=== PATIENT | male | born 1970 | race Caucasian/White ===

== ENCOUNTER 2018-03-03 13:32 | Inpatient (IN) | payer OTHER ==
[2018-03-03] MEDS ORDERED: NS 1,000 ML IV ONE (13:57)
--- NOTE | 2018-03-03 13:57 | EDPHY ---
H & P Time Seen by Provider: 03/03/18 13:46 HPI/ROS: Chief complaint. Clumsiness with right arm and right leg HPI. Patient is in 47-year-old male developed clumsiness to right arm and right leg yesterday morning wish they say was about 30 hr ago at approximately 8 :00 a.m. On Sunday morning. He has dizziness and vomiting. They thought he had a middle ear infection and use some cczc-gas-rmaieuk medications. He is vomiting is better. His dizziness is somewhat better however clumsiness and weakness to right arm and like with right leg has persisted. He fell yesterday secondary to weakness and clumsiness. He had a headache yesterday but not today. His vision is normal. No chest discomfort or shortness of breath or abdominal pain. No similar symptoms previously ROS Constitutional. no fever/chills, no weakness Eyes. no problems with vision ENT. no sore throat, no nasal drainage Cardiovascular. no chest pain Respiratory. no shortness of breath, no cough Abdominal. no abdominal pain, no nausea/vomiting, no diarrhea . no problems urinating MS. no calf pain/swelling, no neck/back pain, no joint pain Skin. no rash Lymph. no swollen glands Neuro. Headache yesterday. Clumsiness and weakness to right arm and right leg Past Medical/Surgical History: Occasional tachycardia Social History: , nonsmoker, no alcohol Smoking Status: Never smoked Physical Exam: General Appearance: Alert well-developed male mild distress vital signs significant for blood pressure 172/112 Eyes: Pupils equal and round no pallor or injection. ENT, Mouth: Mucous membranes are moist. Respiratory: There are no retractions, lungs are clear to auscultation. Cardiovascular: Regular rate and rhythm. Gastrointestinal: Abdomen is soft and nontender, no masses, bowel sounds normal. Neurological: Awake and alert. Speech is normal. Cranial nerves are normal. There is no pronator drift. Finger to nose is abnormal with the right arm. Jywf-ig-[id number] is somewhat abnormal with the right leg. Left side is normal Skin: Warm and dry, no rashes. Musculoskeletal: Neck is supple nontender. Extremities symmetrical, full range of motion. Psychiatric: Patient is oriented X 3, there is no agitation. Constitutional: Initial Vital Signs Temperature (C) 36.7 C 03/03/18 13:38 Heart Rate 64 03/03/18 13:38 Respiratory Rate 18 03/03/18 13:38 Blood Pressure 172/112 H 03/03/18 13:38 O2 Sat (%) 97 03/03/18 13:38 O2 Delivery Mode Room Air Allergies/Adverse Reactions: No Known Allergies Allergy (Unverified 03/03/18 13:38) Medical Decision Making - Diagnostics EKG Interpretation: EKG interpreted by me shows normal sinus rhythm normal interval. There is left axis deviation. QRS shows electrical evidence for LVH. No significant ST elevation or depression. No arrhythmia. The rate is 57 Imaging Results: Imaging Impressions Chest X-Ray 03/03/18 13:57 Impression: 1. No acute pulmonary disease. 2. Consider chest two views when the patient's medical condition permits. Noncontrast head CT shows a subacute infarct in the right cerebellum in the posterior pica territory. There is also dense right vertebral artery Procedures: IV normal saline, monitor ED Course/Re-evaluation: I consulted discussed the case with at [facility]. He recommends admission for stroke workup but no intervention at this time 2:30 p.m. I re-evaluated the patient. Stable and unchanged. He and I and his discussed imaging and lab results. We discussed treatment plan including recommendation for admission. They expressed understanding I consulted discussed case with Dr. Jovel, neurology who recommends CTA head and neck and giving the patient aspirin I consulted and discussed case with Dr. Lujan, hospitalist who agrees to the admission Differential Diagnosis: Patient head posterior fossa symptoms yesterday and thought was inner ear infection. However he continued to be ataxic. He has evidence of right cerebellar stroke. He did have trauma while playing hockey on Sunday the day before and it is possible the patient may have had a vertebral artery dissection as a cause. - Data Points Laboratory Results: Laboratory Results 03/03/18 13:50 03/03/18 13:50 03/03/18 03/03/18 03/03/18 14:16 13:50 13:50 WBC RBC Hgb Hct MCV MCH MCHC RDW Plt Count MPV Neut % (Auto) Lymph % (Auto) [place] % (Auto) Eos % (Auto) Baso % (Auto) Nucleat RBC Rel Count Absolute Neuts (auto) Absolute Lymphs (auto) Absolute Monos (auto) Absolute Eos (auto) Absolute Basos (auto) Absolute Nucleated RBC Immature Gran % Immature Gran # PT 13.2 SEC SEC (12.0-15.0) INR 0.98 (0.83-1.16) Sodium 137 mEq/L mEq/L (135-145) Potassium 3.8 mEq/L mEq/L (3.3-5.0) Chloride 101 mEq/L mEq/L (97-110) Carbon Dioxide 28 mEq/l mEq/l (22-31) Anion Gap 8 mEq/L mEq/L (8-16) BUN 16 mg/dL mg/dL (7-23) Creatinine 0.8 mg/dL mg/dL (0.7-1.3) Estimated GFR > 60 Glucose 120 mg/dL H mg/dL (70-100) Calcium 9.7 mg/dL mg/dL (8.5-10.4) POC Troponin I 0.00 ng/mL ng/mL (0.00-0.08) 03/03/18 13:50 WBC 8.01 10^3/uL 10^3/uL (3.80-9.50) RBC 4.73 10^6/uL 10^6/uL (4.40-6.38) Hgb 14.4 g/dL g/dL (13.7-17.5) Hct 42.0 % % (40.0-51.0) MCV 88.8 fL fL (81.5-99.8) MCH 30.4 pg pg (27.9-34.1) MCHC 34.3 g/dL g/dL (32.4-36.7) RDW 12.3 % % (11.5-15.2) Plt Count 248 10^3/uL 10^3/uL (150-400) MPV 9.9 fL fL (8.7-11.7) Neut % (Auto) 77.3 % H % (39.3-74.2) Lymph % (Auto) 13.5 % L % (15.0-45.0) [place] % (Auto) 8.4 % % (4.5-13.0) Eos % (Auto) 0.2 % L % (0.6-7.6) Baso % (Auto) 0.4 % % (0.3-1.7) Nucleat RBC Rel Count 0.0 % % (0.0-0.2) Absolute Neuts (auto) 6.19 10^3/uL 10^3/uL (1.70-6.50) Absolute Lymphs (auto) 1.08 10^3/uL 10^3/uL (1.00-3.00) Absolute Monos (auto) 0.67 10^3/uL 10^3/uL (0.30-0.80) Absolute Eos (auto) 0.02 10^3/uL L 10^3/uL (0.03-0.40) Absolute Basos (auto) 0.03 10^3/uL 10^3/uL (0.02-0.10) Absolute Nucleated RBC 0.00 10^3/uL 10^3/uL (0-0.01) Immature Gran % 0.2 % % (0.0-1.1) Immature Gran # 0.02 10^3/uL 10^3/uL (0.00-0.10) PT INR Sodium Potassium Chloride Carbon Dioxide Anion Gap BUN Creatinine Estimated GFR Glucose Calcium POC Troponin I Medications Given: Discontinued Medications Sodium Chloride (Ns) 1,000 mls @ 0 mls/hr IV ONCE ONE; Wide Open PRN Reason: Protocol Stop: 03/03/18 13:58 Last Admin: 03/03/18 14:05 Dose: 1,000 mls Point of Care Test Results: Chemistry 03/03/18 14:16 POC Troponin I 0.00 ng/mL ng/mL (0.00-0.08) Departure - Departure Disposition: Home, Routine, Self-Care Clinical Impression: Acute ischemic stroke Condition: Fair Referrals: RICHARD CARO [Primary Care Provider] - As per Instructions
[2018-03-03 14:11] LABS: PLATELET COUNT 248 10^3/uL (150-400)
[2018-03-03 14:18] LABS: INR 0.98 (0.83-1.16); PROTIME(PATIENT) 13.2 SEC (12.0-15.0)
[2018-03-03] MEDS ORDERED: ASPIRIN 81 MG CHEWABLE TAB PO ONE (14:50)
--- NOTE | 2018-03-03 15:15 | CPEKG ---
Test Reason : OPEN Blood Pressure : / mmHG Vent. Rate : 057 BPM Atrial Rate : 058 BPM P-R Int : 224 ms QRS Dur : 105 ms QT Int : 459 ms P-R-T Axes : 045 000 032 degrees QTc Int : 447 ms Sinus rhythm Prolonged CT interval Left ventricular hypertrophy Confirmed by Claudy Yanez ([id number]) on 03/03/2018 3:14:53 PM Referred By: Confirmed By:Claudy Yanez
[2018-03-03] MEDS ORDERED: IOPAMIDOL (ISOVUE 370) 100 ML BTL IV ONE (15:20)
[2018-03-03] MEDS ORDERED: ONDANSETRON 4 MG/2 ML VIAL IVP PRN (15:35)
[2018-03-03] MEDS ORDERED: HYDROCODONE/APAP 5/325 TAB PO PRN (15:35)
[2018-03-03] MEDS ORDERED: PROMETHAZINE HCL 25 MG/ML INJ IVP PRN (15:35)
[2018-03-03] MEDS ORDERED: oxyCODONE IR 5 MG TAB PO PRN (15:35)
[2018-03-03] MEDS ORDERED: ONDANSETRON DISINTEGRATING 4 MG TAB PO PRN (15:35)
--- NOTE | 2018-03-03 20:45 | PDGENHP ---
History and Physical - Chief Complaint vertigo, right sided clumsiness - History of Present Illness Patient is a 47 yo M with no significant history other than borderline HTN and occasional tachycardia presenting with approximately 30 hours of vertigo and right sided clumsiness. He notes that the sxs began the morning prior to admission. He woke in the morning and noted that the room was spinning, this was associated with nausea and vomiting. He was having difficulty walking and stumbled to the bathroom and then got back in bed. He and his called his PCP and they were told this is likely vertigo and to try meclizine. He essentially stayed in bed all day yesterday due to these sxs. This morning he woke up and noticed that when he tried to wipe his nose with his right hand it was much harder than when he tried to do it with his left, it just seemed clumsier. He still could not walk unless he was side stepping and the vertigo remained present as well. At that time they consulted a friend who is a tax assessor who recommended they come to the hospital for evaluation. In the ER , patient was found to have a large subacute infarct in the right cerebellum. History Information - Allergies/Home Medication List Allergies/Adverse Reactions: No Known Allergies Allergy (Verified 03/03/18 16:03) Home Medications: Ibuprofen [Motrin (*)] 400 - 600 mg PO DAILY PRN 03/03/18 [Last Taken 03/03/18] Meclizine HCl [Meclizine HCl 25 mg (RX,OTC)] 25 mg PO BID PRN 03/03/18 [Last Taken 03/03/18 3 IN LAST 24 HRS] diphenhydrAMINE HCL [Diphenhydramine HCl] 25 mg PO DAILY PRN 03/03/18 [Last Taken 03/02/18] I have personally reviewed and updated: family history, medical history, social history, surgical history - Past Medical History hypertension (borderline, never treated) - Surgical History Reports: no pertinent surgical hx - Family History Additional family history: both parents in their 40s: father of a diving accident, mother of pulmonary edema related to an asthma attack - Social History Smoking Status: Former smoker (briefly smoked in HS/college) Alcohol Use: Occasionally Drug Use: None 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 plays hockey frequently including day prior to sxs beginning at which time he suffered a knock to the head Review of Systems Review of Systems: ROS: 10pt was reviewed & negative except for what was stated in HPI & below Physical Exam Physical Exam: Temp Pulse Resp BP Pulse Ox 36.7 C 85 21 H 146/90 H 96 03/03/18 20:00 03/03/18 20:00 03/03/18 20:00 03/03/18 20:00 03/03/18 20:00 Constitutional: no apparent distress, appears nourished Eyes: PERRL Ears, Nose, Mouth, Throat: moist mucous membranes, hearing normal Cardiovascular: regular rate and rhythym, no murmur, rub, or gallop, No edema Respiratory: no respiratory distress, no rales or rhonchi, clear to auscultation Gastrointestinal: normoactive bowel sounds, soft, non-tender abdomen Genitourinary: no bladder tenderness Skin: warm, normal color Musculoskeletal: full muscle strength Neurologic: AAOx3, CN II-XII Intact, other (right upper and lower extremity decreased coordination, abnormal gait) Psychiatric: interacting appropriately, not anxious, not encephalopathic Lab Data & Imaging Review 03/03/18 13:50 03/03/18 13:50 WBC 8.01 10^3/uL (3.80-9.50) 03/03/18 13:50 RBC 4.73 10^6/uL (4.40-6.38) 03/03/18 13:50 Hgb 14.4 g/dL (13.7-17.5) 03/03/18 13:50 Hct 42.0 % (40.0-51.0) 03/03/18 13:50 MCV 88.8 fL (81.5-99.8) 03/03/18 13:50 MCH 30.4 pg (27.9-34.1) 03/03/18 13:50 MCHC 34.3 g/dL (32.4-36.7) 03/03/18 13:50 RDW 12.3 % (11.5-15.2) 03/03/18 13:50 Plt Count 248 10^3/uL (150-400) 03/03/18 13:50 MPV 9.9 fL (8.7-11.7) 03/03/18 13:50 Neut % (Auto) 77.3 % (39.3-74.2) H 03/03/18 13:50 Lymph % (Auto) 13.5 % (15.0-45.0) L 03/03/18 13:50 [place] % (Auto) 8.4 % (4.5-13.0) 03/03/18 13:50 Eos % (Auto) 0.2 % (0.6-7.6) L 03/03/18 13:50 Baso % (Auto) 0.4 % (0.3-1.7) 03/03/18 13:50 Nucleat RBC Rel Count 0.0 % (0.0-0.2) 03/03/18 13:50 Absolute Neuts (auto) 6.19 10^3/uL (1.70-6.50) 03/03/18 13:50 Absolute Lymphs (auto) 1.08 10^3/uL (1.00-3.00) 03/03/18 13:50 Absolute Monos (auto) 0.67 10^3/uL (0.30-0.80) 03/03/18 13:50 Absolute Eos (auto) 0.02 10^3/uL (0.03-0.40) L 03/03/18 13:50 Absolute Basos (auto) 0.03 10^3/uL (0.02-0.10) 03/03/18 13:50 Absolute Nucleated RBC 0.00 10^3/uL (0-0.01) 03/03/18 13:50 Immature Gran % 0.2 % (0.0-1.1) 03/03/18 13:50 Immature Gran # 0.02 10^3/uL (0.00-0.10) 03/03/18 13:50 PT 13.2 SEC (12.0-15.0) 03/03/18 13:50 INR 0.98 (0.83-1.16) 03/03/18 13:50 Sodium 137 mEq/L (135-145) 03/03/18 13:50 Potassium 3.8 mEq/L (3.3-5.0) 03/03/18 13:50 Chloride 101 mEq/L (97-110) 03/03/18 13:50 Carbon Dioxide 28 mEq/l (22-31) 03/03/18 13:50 Anion Gap 8 mEq/L (8-16) 03/03/18 13:50 BUN 16 mg/dL (7-23) 03/03/18 13:50 Creatinine 0.8 mg/dL (0.7-1.3) 03/03/18 13:50 Estimated GFR > 60 03/03/18 13:50 Glucose 120 mg/dL (70-100) H 03/03/18 13:50 Calcium 9.7 mg/dL (8.5-10.4) 03/03/18 13:50 POC Troponin I 0.00 ng/mL (0.00-0.08) 03/03/18 14:16 Visualized and Interpreted Chest x-ray results: Yes Chest X-Ray results: no infiltrate Visualized and Interpreted imaging results: Yes Interpretation: head CT: large right sided cerebellar infarct. head/neck CTA: complete occlusion of distal right vertebral artery likely 2/2 dissection EKG Interpretation: Positive for: LVH, normal sinsus rhythm Assessment & Plan Assessment: Acute ischemic stroke (Acute) 47 yo M with no significant pmh admitted with large right cerebellar CVA # cerebellar CVA: significant sized infarct with associated complete occlusion of distal right vertebral artery likely 2/2 dissection given hx of playing hockey and having a head injury the day prior to his sxs beginning. Given the size and location of the infarct, patient is high risk for cerebral edema and herniation and will be monitored in ICU with q1 hour neuro checks and plan for stat head CT if sxs change. Neurology and neurosurgery are aware and are following, reviewed care plan with nursing and patient at length. # vertigo: 2/2 above, sxs are improving, will have pt/ot involved # htn: allowing for permissive htn for now, will continue to monitor, may require bp meds at dc # IP status, high risk requiring close monitoring in ICU Patient new to my care. Old records reviewed and summarized as above, care plan reviewed with neurology, neurosurgery. Further hx obtained from patients present at bedside.
--- NOTE | 2018-03-03 21:55 | GCON ---
CONSULTING SERVICE: Emergency and Hospitalist Medicine. REASON FOR CONSULT: Left PICA infarct with left cerebellar hemispheric infarct. HISTORY OF PRESENT ILLNESS: The patient is a very healthy 47-year-old male who developed clumsiness to his right arm and right leg yesterday over a day ago, possibly associated with a very physical calra nt at a hockey game. He initially thought he had an ear infection, used some tmww-vnb-vqqlflv medica tions, but due to persistent clumsiness and weakness of his right arm and leg, he presented to the [facility] today. He is wide awake and alert. His is at the bedside as well. They provide their o wn history. Head CT was performed which demonstrated a right-sided cerebellar infarct consistent wit h a PICA stroke and vascular imaging is consistent with a possible dissection PAST MEDICAL/SURGICAL HISTORY: Per HPI. Occasional tachycardia. CODE STATUS: Full. ALLERGIES: None. SOCIAL HISTORY: . Nonsmoker. No alcohol use. Denies illicits. FAMILY HISTORY: Reviewed. No history of stroke. REVIEW OF SYSTEMS: Ten points reviewed and negative other than as stated in HPI. PHYSICAL EXAM: VITALS: Afebrile at 36.7, heart rate 64, respiratory rate 18, blood pressure 172/112 , saturations 97% on room air. NEUROLOGIC: The patient is awake, alert, oriented x3. He appears hi s stated age. He is in no acute distress. He has normal fluent speech. He provides his own history . He has normal cranial nerves. He has 5/5 strength in all extremities. He has some very mild dysd iadochokinesia and dysmetria of the right upper and lower extremities, but this is very, very subtle. He has normal reflexes. Otherwise, no cerebellar findings. Gait is not disturbed. LABORATORIES: White blood cells 8, hemoglobin 14, platelet count 248. PT and INR are 13 and 0.98. Sodium 137, potassium 3.8, BUN 16, creatinine 0.8, glucose 120. Troponin is 0.00. IMAGING: I reviewed the patient's CT of the head without contrast and CT of the head with contrast a nd agree with an occlusion of the distal right vertebral artery and a concomitant right-sided PICA in farct with infarction of the inferior 1/3 of the right cerebral hemisphere without significant efface ment of the 4th ventricle or hydrocephalus. IMPRESSION AND PLAN: A 47-year-old very healthy male who has what appears to be a right-sided distal vertebral artery occlusion and right-sided posterior inferior cerebellar artery infarct, who is in v angela good neurologic condition. This is possibly related to a traumatic etiology at a hockey match ye sterday. Regardless, the infarct is completed and his symptoms are over a day old, so there is no ro le for chemo or mechanical intervention at this point in time. He is in extremely good condition. A t this point, I would observe him in the ICU and keep an eye on his ins and outs and sodium levels to prevent neurologic deterioration from cerebellar hemispheric swelling. We are following along and t he stroke neurology team is going to consult as well. Avoid narcotics if able. Thank you for this consult. /[id number]/MODL
[2018-03-03] MEDS: ACETAMINOPHEN 325 MG TAB PO PRN (23:23)
[2018-03-04] MEDS: ACETAMINOPHEN 325 MG TAB PO PRN ×4 (04:08→18:01)
[2018-03-04] MEDS: ASPIRIN 81 MG CHEWABLE TAB PO SCH (08:51)
--- NOTE | 2018-03-04 09:22 | ASMTCMCOM ---
CM Note CM Note Notes: 47yr old male admitted for vertigo, R sided weakness, Stroke. He has a Hx of borderline HTN and occasional tachy. Therapies to eval for discharge needs. May be appropriate for In-pt Rehab. CM to [facility]. Date Signed: 03/04/2018 09:21 AM Electronically Signed By:Kiana Hernandez LCSW
--- NOTE | 2018-03-04 09:27 | NEUROPROG ---
Assessment: Juan [id number] - Neurology Consult: - CC: Dr. Lujan consulted neurology for Cerebellar Stroke. Results placed in EMR for her review. - HPI: Pt was admitted to [facility] on 03/03/18 for 30 hours of right hand clumsiness and vertigo. A head CT showed a subacute right cerebellar stroke. He had played hockey on 03/01/18 prior to his symptoms and struck his head indicating he may have developed a right vertebral dissection to explain his stroke. CTA head/ neck showed an occluded right vert artery. Teleneurology did not recommend TPA or transfer for intra-arterial therapy. Given large infratentorial stroke the patient was placed in ICU and neurosurgery was consulted to watch for any hydrocephalus or hemorrhagic conversion. I initially saw the patient on . His neurologic exam showed right arm and right leg ataxia. NIH SS 1. He reported his symptoms were much improved and he continued to feel better. No new complaints. - PMHx: borderline HTN, occasional tachycardia - SHx: former tobacco use FHx: asthma, pulm edema - ROS: Pt denied acute fever, total vision loss, active severe chest pain, respiratory failure, total body severe rash, total bowel/bladder incontinence, psychosis, active seizures, or active bleeding - O: VS reviewed General: Alert Eyes: Fundoscopic exam not able to visualize optic disks CV: Heart RRR, no murmur, no carotid bruit Lungs: Clear to auscultation bilaterally, no rhonchi or rales Neuro: - Mental: . Oriented x person/place/date . concentration appears normal . speech fluency/comprehension normal . memory appears normal . fund of knowledge appear intact - Cranial Nerves: . II: PERRL, VFFTC . III/IV/: EOMI, no nystagmus, normal smooth pursuits, no Ptosis . V: facial sensation intact to LT . VII: face symmetric to eye closure and smile . VIII: hearing intact to conversation . IX/X: uvula raises symmetrically . XI: SCM 5/5 B/L strength . XII: tongue protrudes midline w/nl strength - Motor: . Tone: normal tone in all 4 extremity . Strength: no pronator drift, strength 5/5 throughout (B/L delt, bic, tri, hand assistant restaurant general manager, hf/he, df/pf) - Reflexes: B/L bic/BR/patella 2/4 - Sensory: all 4 extremity intact to light touch - Coord: problems with right arm and leg coordinated movements which was mild to moderate - Gait: deferred - NIH SS 1 (Right arm/leg ataxia) - Labs: 03/03/18- CBC wnl, CMP Gluc 120, INR 0.98 03/04/18- LDL 94, H1AC pending - Rads: 03/03/18- Head CT w/o: subacute R posteroinferior cerebellar artery infarct, dense distal R vert suggesting thrombus/occlusion, no hemorrhage (I personally visualized the images on 03/04/18) 03/03/18- Head/neck CTA: occluded R vert likely secondary to vert dissection, subacute R cerebellar CVA - Assessment: 1. 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 History of a head trauma playing hockey on 03/01/18 preceding the stroke and the patients young age and lack of stroke risk factors makes vertebral dissection the most likely cause of his stroke. Pt not on aspirin prior to stroke so he was placed on aspirin 81 mg qd. LDL 94 so he will need a statin. I will complete a stroke w/u. We discussed hematology consult, referral to a stroke expert, and an implanted cardiac monitoring device but patient declined these things after I told him I did not think it was likely they would exchange administrator. - Plan: - Pt on ICU status monitoring for any infratentorial hemorrhagic conversion or hydrocephalus, appreciate neurosurgery support, if patient is doing well tomorrow morning I think he can leave the ICU from a neurology standpoint - Agree with aspirin 81 mg qd for stroke prevention (not on aspirin prior to stroke), pt will need this life-long - Brain MRI w/o con - TTE - 24 hour telemetry - Blood pressure < 220/120 x 24 hours then < 140/90 longterm - LDL goal < 70 (94), recommend beginning a statin - H1AC < 7.0 (pending) - PT/OT/speech for any rehab needs - F/U in neurology clinic 1-2 weeks after hospital discharge Objective: Vital Signs Temp Pulse Resp BP Pulse Ox 36.7 C 67 18 143/95 H 94 03/03/18 20:00 03/04/18 08:00 03/04/18 08:00 03/04/18 08:00 03/04/18 08:00 03/03/18 03/04/18 03/05/18 05:59 05:59 05:59 Intake Total 500 Output Total 500 Balance 0 PT 13.2 SEC (12.0-15.0) 03/03/18 13:50 INR 0.98 (0.83-1.16) 03/03/18 13:50 Allergies/Adverse Reactions: No Known Allergies Allergy (Verified 03/03/18 16:03)
--- NOTE | 2018-03-04 10:18 | NEUSURGPN ---
Assessment/Plan: Assessment: 47 yr old M with possible traumatic right vertebral artery dissection, PICA stroke Plan: -patient reports improvement with symptoms today -will defer to neurology for stroke management -ok to transfer to floor from neurosurgery standpoint -PT/OT/ST -patient discussed with Dr Valdez please call neurosurgery with any questions/concerns Subjective: Sitting in chair, denies any concerns Objective: AxO x3 PERRLA, EOMI CN 2-12 grossly intact Clear speech 5/5 BUE, BLE Neuro Check Frequency: per routine Urinary Catheter in Place: No - Physician Discussed Patient with : José Miguel Neurosurgery Physical Exam - Vitals, I&O, Labs I and O 03/03/18 03/04/18 03/05/18 05:59 05:59 05:59 Intake Total 500 Output Total 500 Balance 0 Weight 92.986 kg Intake: Oral (ml) 500 Output: Urine (ml) 500 Urinal 500 Other: Number of Voids Toilet 2 Vital Signs Temp Pulse Resp BP Pulse Ox 36.7 C 67 18 143/95 H 94 03/03/18 20:00 03/04/18 08:00 03/04/18 08:00 03/04/18 08:00 03/04/18 08:00 ICD10 Worksheet Patient Problems: Problems Problem Status Onset Acute ischemic stroke Acute
--- NOTE | 2018-03-04 10:29 | PDMN ---
Medical Necessity Medical necessity: [facility] [place] Ischemic Stroke: 47 y/o w/ acute ischemic stroke, cerebellar CVA significant size w/ assoc occlusion of distal R vertebral artery likely 2/2 dissection, high risk for cerebral edema and herniation, neurology and neurosurgery consulted. IP only
--- NOTE | 2018-03-04 14:55 | HOSPPROG ---
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 Very mild right sided ataxia on exam that is reportedly much improved since admission. Vertigo has resolved. - Neurology and neurosurgery consulted - Brain MRI today demonstrates subacute infarct in PICA territory with mild mass effect - TTE pending - LDL 94. Discussed starting statin with patient and today. They want to think about this - Continue aspirin 81mg daily (started this admission) - Telemetry - PT/OT/ACCOUNT UNDERWRITER - recommending home PT/OT at present - BP goal <140/90. May need to initiate anti-hypertensive prior to discharge Diet: regular VTE ppx: Code: full Dispo: Remain inpatient in ICU for frequent neurologic checks. Plan to transfer to floor tomorrow. Subjective: Doing much better than on arrival to hospital. Walking around room without difficulty. Able to brush teeth today which he hasn't been able to do. Objective: Vital Signs Temp Pulse Resp BP Pulse Ox 36.8 C 72 18 145/87 H 96 03/04/18 12:00 03/04/18 14:00 03/04/18 14:00 03/04/18 14:00 03/04/18 12:00 03/03/18 03/04/18 03/05/18 05:59 05:59 05:59 Intake Total 500 Output Total 500 Balance 0 PT 13.2 SEC (12.0-15.0) 03/03/18 13:50 INR 0.98 (0.83-1.16) 03/03/18 13:50 - Physical Exam Constitutional: no apparent distress, appears nourished, not in pain Eyes: PERRL, anicteric sclera, EOMI Ears, Nose, Mouth, Throat: moist mucous membranes, hearing normal, ears appear normal, no oral mucosal ulcers Cardiovascular: regular rate and rhythym, no murmur, rub, or gallop Respiratory: no respiratory distress, no rales or rhonchi, clear to auscultation Gastrointestinal: normoactive bowel sounds, soft, non-tender abdomen, no palpable masses Skin: no rashes or abrasions, no fluctuance, no induration Neurologic: AAOx3, sensation intact bilaterally, CN II-XII Intact, other (very mild RUE and RLE ataxia, narrow based gait), No weakness, No numbness, No pronator drift, No facial droop Psychiatric: interacting appropriately, not anxious, not encephalopathic, thought process linear ICD10 Worksheet Patient Problems: Problems Problem Status Onset Acute ischemic stroke Acute
--- NOTE | 2018-03-04 15:28 | ECHO ---
[email or web address] [address] [address] Main: [phone] Fax: Transthoracic Echocardiogram Name: LATHA LEVY MR#: [id number] Study Date: 03/04/2018 Study Time: 08:03 AM Date of : 1970 Age: 47 year(s) Height: 182.9 cm (72 in.) Weight: 92.99 kg (205 lb.) BSA: 2.15 m2 Gender: Male Examination: Echo Indication: ischemic stroke Image Quality: Adequate Contrast: Requested by: Tyler Lujan BP: 143 mmHg/92 mmHg Heart Rate: Rhythm: Indication: ischemic stroke Procedure Staff Center Director: Bety Vincent RDCS Reading Physician: Cam Rg MD Requesting Provider: Conclusions: Normal size left ventricle. Mild concentric LV hypertrophy. Normal global systolic LV function. EF is 56 %. No regional wall motion abnormality. The left atrium is normal in size. An agitated saline study was performed and was positive for intracardiac shunting. Mild mitral valve regurgitation is present. Mild tricuspid regurgitation is present. There is moderate dilation of the aortic sinuses of Valsalva measuring 5.2 cm. Consider transesophageal echocardiography for further evaluation in light of the positive agitated saline contrast study and dilated aorta. Measurements: Chambers Valvular Assessment AV/MV Valvular Assessment TV/PV Normal Normal Normal Name Value Range Name Value Range Name Value Range Ao Mirtha (2D): 5.1 cm (1.4 cm-2.6 AV Vmax: 0.96 m/s (1 m/s-1.7 TR Vmax: 2.38 mm/s ( - ) cm) m/s) TR PGmax: 23 mmHg ( - ) IVSd (2D): 1.3 cm (0.6 cm-1.1 AV maxP mmHg ( - ) syst. PAP: 28 mmHg ( - ) cm) AV meanP mmHg ( - ) PV Vmax: 1.06 m/s (0.6 m/s-0.9 LVDd (2D): 5.1 cm (4.2 cm-5.9 LEONIE (VTI): 5.1 cm ( - ) m/s) cm) MV E Vmax: 0.41 m/s ( - ) PV PGmax: 4 mmHg ( - ) LVDs (2D): 3.3 cm (2.1 cm-4 MV A Vmax: 0.50 m/s ( - ) cm) MV E/A: 0.82 ( - ) LVPWd (2D): 1.1 cm (0.6 cm-1 cm) MV PHT: 0.089 s ( - ) LVOTd 2.9 cm 2.9 cm mm MVA (PHT): 2.5 s ( - ) LVEF (BP): 56 % (>=55 %) RVDd(2D): 3.6 cm (1.9 cm-3.8 cmmm) Patient: LATHA LEVY Study Date: 03/04/2018 Page 1 of 2 08:03 AM Continued Measurements: Chambers Valvular Assessment AV/MV Valvular Assessment TV/PV Name Value Name Value Name Value LADs: 3.5 cm MV DecTime: 292 m/s CVP (est.): 5 mmHg LADs Lon.3 cm MV E' Septal: 0.07 m/s LA Area: 18.1 cm2 MV E/E' Septal: 6.00 LA Volume: 57 ml MV E/E' Lateral: 4.20 LA Volume Index: 26.5 ml/m2 RA Area: 23.1 cm2 Additional Vessels Name Value Ao Ascendin.0 cm Findings: Left Ventricle: Normal size left ventricle. Mild concentric LV hypertrophy. Normal global systolic LV function. EF is 56 %. No regional wall motion abnormality. Unable to assess diastolic dysfunction. Right Ventricle: Normal size right ventricle. Normal RV function. Left Atrium: The left atrium is normal in size. An agitated saline study was performed and was positive for intracardiac shunting. Right Atrium: The right atrium is normal in size. Mitral Valve: The mitral valve is normal in appearance and function. Mild mitral valve regurgitation is present. No mitral stenosis is present. Aortic Valve: The aortic valve is tri-leaflet. There is no significant aortic valve regurgitation. No aortic valve stenosis is present. Tricuspid Valve: The tricuspid valve is normal in appearance and function. Mild tricuspid regurgitation is present. The pulmonary artery pressure is normal. Right ventricular systolic pressure measures 28mmHg. Pulmonic Valve: The pulmonic valve is normal in appearance and function. There is no pulmonic regurgitation seen. Aorta: The aorta is normal. Normal size ascending aorta measuring 4.0 cm. IVC: Dilated aortic root. Pericardium: No pericardial effusion. No pleural effusion. (No Signature Object) Patient: LATHA LEVY Study Date: 03/04/2018 Page 2 of 2 08:03 AM [id number]
[2018-03-05] MEDS: ACETAMINOPHEN 325 MG TAB PO PRN ×2 (01:41→06:12)
--- NOTE | 2018-03-05 07:27 | NEUSURGPN ---
Assessment/Plan: Assessment: 47 yr old M with possible traumatic right vertebral artery dissection, PICA stroke Plan: -patient reports no symptoms today -will defer to neurology for stroke management -MRI brain shows subacute infarct in the right posterior inferior cerebellar artery territory measuring 6x4cm with mild mass effect -ok to transfer to floor from neurosurgery standpoint -PT/OT/ST -neurosurgery will sign off, please contact us with any questions or change in status -patient discussed with Dr Valdez Subjective: No new complaints Objective: AxO x3 CN 2-12 grossly intact PERRLA EOMI 5/5 BUE, BLE Neuro Check Frequency: per routine Urinary Catheter in Place: No - Physician Discussed Patient with : José Miguel Neurosurgery Physical Exam - Vitals, I&O, Labs I and O 03/04/18 03/05/18 03/06/18 05:59 05:59 05:59 Intake Total 500 1000 Output Total 500 Balance 0 1000 Weight 92.986 kg Intake: Oral (ml) 500 1000 Output: Urine (ml) 500 Urinal 500 Other: Intake Quantity Yes Sufficient Number of Voids Toilet 2 4 Number of Stools Toilet 0 Vital Signs Temp Pulse Resp BP Pulse Ox 36.9 C 67 16 145/98 H 96 03/04/18 20:00 03/05/18 06:00 03/05/18 06:00 03/05/18 06:00 03/05/18 06:00 ICD10 Worksheet Patient Problems: Problems Problem Status Onset Acute ischemic stroke Acute
[2018-03-05] MEDS: ASPIRIN 81 MG CHEWABLE TAB PO SCH (09:33)
--- NOTE | 2018-03-05 11:58 | NEUROPROG ---
Assessment: Juan [id number] - Neurology Consult: - CC: F/U for stroke - Narrative Summary: Pt was admitted to [facility] on 03/03/18 for 30 hours of right hand clumsiness and vertigo. A head CT showed a subacute right cerebellar stroke. He had played hockey on 03/01/18 prior to his symptoms and struck his head indicating he may have developed a right vertebral dissection to explain his stroke. CTA head/ neck showed an occluded right vert artery. Teleneurology did not recommend TPA or transfer for intra-arterial therapy. Given large infratentorial stroke the patient was placed in ICU and neurosurgery was consulted to watch for any hydrocephalus or hemorrhagic conversion. I initially saw the patient on . His neurologic exam showed right arm and right leg ataxia. NIH SS 1. He reported his symptoms were much improved and he continued to feel better. No new complaints. - HPI: F/U 03/04/18. Brain MRI showed only R cerebellar stroke. TTE showed positive bubble study and dilated aorta so it was recommended to consider a STEPHON. I will plan on asking cardiology to evaluate the patient and get a STEPHON given the findings on TTE. He continues to improve and feels almost no symptoms at this time. H1AC normal. - PMHx: borderline HTN, occasional tachycardia - SHx: former tobacco use FHx: asthma, pulm edema - ROS: Pt denied acute fever, total vision loss, active severe chest pain, respiratory failure, total body severe rash, total bowel/bladder incontinence, psychosis, active seizures, or active bleeding - Labs: 03/03/18- CBC wnl, CMP Gluc 120, INR 0.98 03/04/18- LDL 94, H1AC 5.7 - Rads: 03/03/18- Head CT w/o: subacute R posteroinferior cerebellar artery infarct, dense distal R vert suggesting thrombus/occlusion, no hemorrhage (I personally visualized the images on 03/04/18) 03/03/18- Head/neck CTA: occluded R vert likely secondary to vert dissection, subacute R cerebellar CVA 03/04/18- TTE: positive bubble study and dilated aorta, consider STEPHON 03/04/18- 24 hour telemetry: no afib seen 03/04/18- Brain MRI w/o con: Subacute infarct in the right posteroinferior cerebellar artery territory, measuring 6 x 4 cm, in the inferior right cerebellar hemisphere with mild mass effect. 2. Mild microvascular ischemic gliosis in the white matter of bilateral cerebral hemispheres. 3. No hydrocephalus or midline shift or herniation. - Assessment: 1. 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 History of a head trauma playing hockey on 03/01/18 preceding the stroke and the patients young age and lack of stroke risk factors makes vertebral dissection the most likely cause of his stroke. Pt not on aspirin prior to stroke so he was placed on aspirin 81 mg qd. LDL 94 so it was recommended to start a statin. H1AC 5.7. Brain MRI showed only R cerebellar stroke and head/neck CTA showed right vert occlusion. 24 hour telemetry showed no afib. TTE showed +bubble study and dilated aorta so we will obtain formal cardiology consult and STEPHON to further evaluate. - Plan: - OK to leave ICU and move to floor - Agree with aspirin 81 mg qd for stroke prevention (not on aspirin prior to stroke), pt will need this life-long - TTE showed +bubble study and dilated aorta so we will obtain formal cardiology consult and STEPHON to further evaluate. - Blood pressure < 140/90 - LDL goal < 70 (94), recommend beginning a statin - H1AC < 7.0 (5.7) - PT/OT/speech for any rehab needs - F/U in neurology clinic 1-4 weeks after hospital discharge - 35 min spent with patient, majority of time spent counseling on stroke prognosis and diagnostic w/u. Objective: Vital Signs Temp Pulse Resp BP Pulse Ox 36.6 C 75 20 131/93 H 98 03/05/18 08:00 03/05/18 08:00 03/05/18 08:00 03/05/18 08:00 03/05/18 08:00 03/04/18 03/05/18 03/06/18 05:59 05:59 05:59 Intake Total 500 1000 Output Total 500 Balance 0 1000 PT 13.2 SEC (12.0-15.0) 03/03/18 13:50 INR 0.98 (0.83-1.16) 03/03/18 13:50 Allergies/Adverse Reactions: No Known Allergies Allergy (Verified 03/03/18 16:03)
[2018-03-05 12:59] VITALS: BP 137/96
--- NOTE | 2018-03-05 14:50 | ASDISCHSUM ---
Discharge Information Plan Status:Home with No Needs Medically Cleared to Leave:03/05/2018 Discharge Date:03/05/2018 CM D/C Disposition:Home, Routine, Self-Care ADT D/C Disposition:Home, Routine, Self-Care Projected Discharge Date:03/05/2018 04:00 PM Transportation at D/C:Family Discharge Delay Reason: Follow-Up Date:03/05/2018 04:00 PM Discharge Slot: Final Diagnosis:Cerebellar CVA Placement Information Patient Contact Information Contact Name:KARINE Relationship: Address:[address] [place] City:[place] Alternate Phone: State/Zip Code:[place] [address] Email: Financial Information Financial Class:[facility] Primary Plan Desc:[facility] Primary Plan Number:[id number] Secondary Plan Desc: Secondary Plan Number: Assessment Information LACE LACE Length of stay for Answers: 2 days current admission Acuity / Level of Answers: Yes Care: Did the patient have an inpatient admission? Comorbidities - select Answers: Other Notes: HTN all that apply # of Emergency department Answers: 1-2 visits in the last 6 months Score: 7 Date Signed: 03/05/2018 02:49 PM Electronically Signed By:Kiana Hernandez LCSW [facility] CM Progress Note CM Note CM Note Notes: 47yr old male admitted for vertigo, R sided weakness, Stroke. He has a Hx of borderline HTN and occasional tachy. Therapies to eval for discharge needs. May be appropriate for In-pt Rehab. CM to [facility]. Date Signed: 03/04/2018 09:21 AM Electronically Signed By:Kiana Hernandez LCSW Case Management Discharge Plan Note Case Management Discharge Discharge Order Complete? Answers: Yes Patient to Obtain Answers: via Family Medications Transportation Arranged Answers: Family/Friends Transport will Pick (Date 03/05/2018 04:00 PM & Time) Family Notified Answers: Yes Notes: Family to transport Discharge Comments Notes: Patient has been discharged home with . Date Signed: 03/05/2018 02:49 PM Electronically Signed By:Kiana Hernandez LCSW Intervention Information
--- NOTE | 2018-03-05 23:01 | PDDCSUM ---
Discharge Summary Discharge Summary: Date of Admission: 03/03/2018 Date of Discharge: 03/05/2018 Consultants: neurology, neurosurgery Procedures/Studies: brain MRI, CTA head/neck, TTE Discharge Diagnoses: 1. Right vertebral artery dissection, resulting in 2. Right cerebellar CVA (PICA territory) 3. Right sided ataxia and vertigo, now essentially resolved 4. Dilated aortic sinuses of Valsalva 5. Patent foramen ovale Brief Hospital Course: Generally healthy 47yo M admitted 30 hours after onset of right hand clumsiness and vertigo. He had played hockey on 03/01/18 where he sustained a headstrike and subsequently developed symptoms. Head CT showed subacute R cerebellar infarct in PICA territory. CTA head/neck showed occluded R vertebral artery most consistent with dissected artery. MRI confirmed the PICA territory infarct. He did not receive tPA. Given his lack of atherosclerotic risk factors, it was felt that trauma leading to arterial dissection was the most likely cause of his CVA. He was started on baby aspirin but declined statin therapy (LDL 94). His symptoms of right sided ataxia, gait instability, and vertigo have pretty much resolved at time of discharge. PT/OT recommended outpatient therapy. He will follow up with neurology. Of note, his TTE showed a PFO however this was thought to be an incidental finding as we do not think his stroke was embolic in origin. The TTE additionally showed a dilated aortic sinus of Valsalva measuring 5.2cm. Given the dissected artery and dilated aorta, the possibility of a connective tissue disease was discussed. Cardiology (Dr Oscar Rg) would like to follow up with the patient in the near future with aorta and renal artery imaging. Medications: Please refer to EMR for complete list. Additions this hospitalization include aspirin 81mg daily. Follow Up Plan: 1. Neurology clinic visit in 1-2 weeks 2. Cardiology clinic visit with Dr Oscar Rg. Plan to obtain CTA chest/abdomen to evaluate aorta and renal arteries 3. Consider starting statin therapy. Monitor BP Physical Exam: Vitals reviewed, normotensive. Alert and oriented. Heart regular rate and rhythm without murmur or fixed split S2. Lungs clear. Abdomen soft, nontender. No extremity edema. Full strength and sensation intact in all extremities. Narrow based gait. No ataxia in upper or lower extremities.
== END 2018-03-05 15:10 | disposition home or self-care (01) | DRG 64 ==
LOC: F2N 17:11
PROVIDERS: ADMIT Internal Medicine; ATTEND Internal Medicine
DX: I63.9 Cerebral infarction, unspecified (principal); I77.74 Dissection of vertebral artery; Q21.1 Atrial septal defect; I77.810 Thoracic aortic ectasia; E86.9 Volume depletion, unspecified; R27.0 Ataxia, unspecified; I10 Essential (primary) hypertension; W21.9XXA Striking against or struck by unspecified sports equipment, initial encounter; Y93.22 Activity, ice hockey; Z87.891 Personal history of nicotine dependence
CPT/HCPCS: 84484-PO; 92523-GN; 97110-GP; 97161-GP; 97166-GO; 97530-GO; 97535-GO; Q9967